=== PATIENT | female | born 1975 | race Caucasian/White ===

== ENCOUNTER 2016-06-24 08:18 | Inpatient (IN) | payer BC ==
[2016-06-24] MEDS ORDERED: Narcan 0.4 MG/ML IV ONE (08:36)
[2016-06-24] MEDS ORDERED: Sodium Chloride 0.9% 1000 ML 1,000 ML IV STA ×2 (08:36→10:08)
--- NOTE | 2016-06-24 08:36 | ERPHSYRPT ---
- History of Present Illness Time Seen by Provider: 06/24/16 08:38 Physician History: The patient is a 41-year-old female brought in by ambulance from her home where the believes she overdosed on medicines sometime last night. It is unclear what she may have overdosed on but she has empty pill bottles. She takes omeprazole, hydrocodone 7.5, Flexeril 10 mg, and clonazepam 0.5 mg. The patient is somnolent but will awake and angry fit to painful stimuli. The EMS crew states that EMS was called to the house yesterday for the patient wanting to cut herself. When asked if she wanted to kill herself, the patient shook her head yes. Otherwise the patient has been very difficult to interview. Timing/Duration: today Severity of Symptoms-Max: severe Severity of Symptoms-Current: severe Context related to: other (unknown) Suicidal thoughts: attempt, ingestion Associated Symptoms: ingestion Previous symptoms: other (unknown) Allergies/Adverse Reactions: No Known Drug Allergies Allergy (Verified 06/24/16 08:30) Home Medications: Clonazepam 0.5 mg [Klonopin 0.5 MG] 0.5 mg PO DAILY 03/16/16 [History] Cyclobenzaprine HCl 10 mg [Flexeril 10 MG] 20 mg PO DAILY 03/16/16 [ History] Fluoxetine HCl [Prozac] 20 mg PO DAILY 03/16/16 [History] Fluticasone Propionate [Flonase Nasal] 50 mcg IH DAILY 03/16/16 [History] Hydrocodone Bit/Acetaminophen [[place] 7.5-325 Tablet] 1 each PO BID 03/16/16 [ History] Omeprazole 20 MG [Prilosec 20 mg] 20 mg PO DAILY 03/16/16 [History] Hx Tetanus, Diphtheria Vaccination/Date Given: Yes (unknown) Hx Influenza Vaccination/Date Given: (unknown) Hx Pneumococcal Vaccination/Date Given: (unknown) - Past Medical History Pertinent Past Medical History: (unknown) Neurological History: No Pertinent History ENT History: No Pertinent History Cardiac History: No Pertinent History Respiratory History: No Pertinent History Endocrine Medical History: No Pertinent History Musculoskeletal History: Fractures GI Medical History: No Pertinent History History: No Pertinent History Psycho-Social History: Anxiety, Depression Female Reproductive Disorders: No Pertinent History Other Medical History: pt not answering questions at this time. no family with pt - Past Surgical History Past Surgical History: (unknown) Neuro Surgical History: No Pertinent History Cardiac: No Pertinent History Respiratory: No Pertinent History Gastrointestinal: No Pertinent History Genitourinary: No Pertinent History Musculoskeletal: No Pertinent History Female Surgical History: Tubal Ligation Other Surgical History: pt's 17 yr old daughter is here with her mother, but is not very knowlegabe abut her mothers medical history other than the facts that she drinks a lot and daughter considers her an alcoholic, and that pt abuses her Rx medications and steals adapex from from her and possible drugs from other people - Social History Smoking Status: Unknown if ever smoked How long have you smoked: unknown Exposure to second hand smoke: Yes Drug Use: methamphetamines, narcotics, other Patient Lives Alone: No - Review of Systems Constitutional: Other (decreased responsiveness) Eyes: No Symptoms Ears, Nose, & Throat: No Symptoms Respiratory: No Cough, No Dyspnea Cardiac: No Chest Pain, No Edema, No Syncope Abdominal/Gastrointestinal: No Abdominal Pain, No Nausea, No Vomiting, No Diarrhea Genitourinary Symptoms: No Symptoms Musculoskeletal: No Symptoms Skin: No Rash Neurological: Other (decreased responsiveness) Psychological: Other (unable to obtain) Endocrine: No Symptoms Hematologic/Lymphatic: No Symptoms Immunological/Allergic: No Symptoms All Other Systems: Reviewed and Negative - Nursing Vital Signs Nursing Vital Signs: Initial Vital Signs Temperature 98.1 F Temperature Source Oral Pulse Rate 96 Respiratory Rate 18 Blood Pressure [Right Arm] 120/77 Pain Intensity 0 - Physical Exam General Appearance: moderate distress Eyes, Ears, Nose, Throat Exam: dry mucous membranes Neck Exam: normal inspection, non-tender, supple Respiratory Exam: normal breath sounds, lungs clear, No respiratory distress Cardiovascular Exam: tachycardia Gastrointestinal/Abdominal Exam: soft, No tenderness, No distention Extremities Exam: normal inspection, normal range of motion, No evidence of injury, No edema Neurological Exam: withdraws to pain Behavior/Eye Contact/Speech: uncooperative, intoxicated appearance Skin Exam: normal color, warm, dry, No rash SpO2 Interpretation: normal - Course EKG Interpreted by Me: RATE, Sinus Rhythm, NORMAL AXIS, NORMAL INTERVALS, NORMAL ST-T Ordered Tests: Active Orders 24 hr Category Date Time Status Accucheck STAT Care 06/24/16 08:36 Active [place] Hardware Installer STAT Care 06/24/16 08:36 Active Cath for Specimen-Straight STAT Care 06/24/16 08:36 Active EKG-ER Only STAT Care 06/24/16 08:36 Active IV Insertion STAT Care 06/24/16 08:36 Active ACETAMINOPHEN Stat Lab 06/24/16 09:11 Completed CBC W DIFF Stat Lab 06/24/16 09:11 Completed CMP Stat Lab 06/24/16 09:11 Completed Ethyl Alcohol,Urine Stat Lab 06/24/16 09:11 Completed Lactic Acid Urgent Lab 06/24/16 08:36 Completed SALICYLATE Stat Lab 06/24/16 09:11 Completed UA W/ MICROSCOPIC Stat Lab 06/24/16 09:11 Completed Urine Triage Profile Stat Lab 06/24/16 09:11 Completed Medication Summary Generic Name Dose Route Start Last Admin Trade Name Freq PRN Reason Stop Dose Admin Sodium Chloride 1,000 mls @ 999 mls/hr 06/24/16 10:08 06/24/16 10:09 Sodium Chloride 0.9% 1000 Ml IV 06/24/16 11:08 999 mls/hr .Q1H1M STA Administration Discontinued Medications Generic Name Dose Route Start Last Admin Trade Name Freq PRN Reason Stop Dose Admin Sodium Chloride 1,000 mls @ 999 mls/hr 06/24/16 08:36 06/24/16 09:06 Sodium Chloride 0.9% 1000 Ml IV 06/24/16 09:36 999 mls/hr .Q1H1M STA Administration Sodium Chloride Confirm 06/24/16 08:44 Sodium Chloride 0.9% 1000 Ml Administered 06/24/16 08:45 Dose 1,000 mls @ ud .ROUTE .STK-MED ONE Sodium Chloride Confirm 06/24/16 09:54 Sodium Chloride 0.9% 1000 Ml Administered 06/24/16 09:55 Dose 1,000 mls @ ud .ROUTE .STK-MED ONE Naloxone HCl 0.4 mg 06/24/16 08:36 06/24/16 09:06 Narcan 0.4 Mg/Ml IV 06/24/16 08:37 0.4 mg STAT ONE Administration Naloxone HCl Confirm 06/24/16 08:44 Narcan 0.4 Mg/Ml Administered 06/24/16 08:45 Dose 0.4 mg .ROUTE .STK-MED ONE Lab/Rad Data: Laboratory Result Diagrams 06/24/16 09:11 06/24/16 09:11 Laboratory Results 06/24/16 06/24/16 06/24/16 Range/Units 09:11 09:11 09:11 WBC 11.0 H (4.0-10.5) K/mm3 RBC 4.47 (4.1-5.4) M/mm3 Hgb 13.3 (12.0-16.0) gm/dl Hct 40.8 (35-47) % MCV 91.3 (78-100) fl MCH 29.8 (26-32) pg MCHC 32.6 (32-36) g/dl RDW 12.8 (11.5-14.0) % Plt Count 258 (150-450) K/mm3 MPV 9.8 H (6-9.5) fl Gran % 72.6 H (36.0-66.0) % Lymphocytes % 14.6 L (24.0-44.0) % Monocytes % 12.3 H (0.0-12.0) % Eosinophils % 0.3 (0.00-5.0) % Basophils % 0.2 (0.0-0.4) % Basophils # 0.02 (0-0.4) Sodium 136 (136-145) mEq/L Potassium 3.5 (3.5-5.1) mEq/L Chloride 101 (98-107) mEq/L Carbon Dioxide 27.6 (21-32) mEq/L Anion Gap 11.1 (5-15) MEQ/L BUN 11 (9-20) mg/dL Creatinine 0.90 (0.55-1.30) mg/dl Estimated GFR > 60 ML/MIN Glucose 86 (70-110) MG/DL Lactic Acid (0.4-2.0) Calcium 8.8 (8.5-10.1) mg/dL Total Bilirubin 1.0 (0.2-1.0) mg/dL AST 36 (15-37) U/L ALT 42 (12-78) U/L Alkaline Phosphatase 74 (46-116) U/L Serum Total Protein 7.2 (6.4-8.2) gm/dL Albumin 3.9 (3.4-5.0) g/dL Ur Collection Type Urine Color (YELLOW) Urine Appearance (CLEAR) Urine pH 7.0 (5-6) Ur Specific [place] (1.005-1.025) Urine Protein (Negative) Urine Glucose (UA) (NEGATIVE) mg/dL Urine Ketones (NEGATIVE) Urine Nitrite (NEGATIVE) Urine Bilirubin (NEGATIVE) Urine Urobilinogen (0-1) mg/dL Urine WBC (Auto) (NEGATIVE) Urine RBC (Auto) (0-5) [place]/ul Urine Microscopic RBC (0-2) /HPF Ur Epithelial Cells (FEW) /HPF Salicylates < 2.8 L (2.8-20.0) mg/dl Urine Opiates Level (NEGATIVE) Ur Methadone (NEGATIVE) Acetaminophen < 2.0 L (10-30) ug/ml Urine Barbiturates (NEGATIVE) Ur Phencyclidine (PCP) (NEGATIVE) Urine Amphetamine (NEGATIVE) U Benzodiazepine Level (NEGATIVE) Urine Cocaine (NEGATIVE) Urine Marijuana (THC) (NEGATIVE) Urine Ethyl Alcohol 4 (0.00-20) mg/dl Specimen Received 06/24/16 06/24/16 06/24/16 Range/Units 09:11 09:11 08:36 WBC (4.0-10.5) K/mm3 RBC (4.1-5.4) M/mm3 Hgb (12.0-16.0) gm/dl Hct (35-47) % MCV (78-100) fl MCH (26-32) pg MCHC (32-36) g/dl RDW (11.5-14.0) % Plt Count (150-450) K/mm3 MPV (6-9.5) fl Gran % (36.0-66.0) % Lymphocytes % (24.0-44.0) % Monocytes % (0.0-12.0) % Eosinophils % (0.00-5.0) % Basophils % (0.0-0.4) % Basophils # (0-0.4) Sodium (136-145) mEq/L Potassium (3.5-5.1) mEq/L Chloride (98-107) mEq/L Carbon Dioxide (21-32) mEq/L Anion Gap (5-15) MEQ/L BUN (9-20) mg/dL Creatinine (0.55-1.30) mg/dl Estimated GFR ML/MIN Glucose (70-110) MG/DL Lactic Acid 0.9 (0.4-2.0) Calcium (8.5-10.1) mg/dL Total Bilirubin (0.2-1.0) mg/dL AST (15-37) U/L ALT (12-78) U/L Alkaline Phosphatase (46-116) U/L Serum Total Protein (6.4-8.2) gm/dL Albumin (3.4-5.0) g/dL Ur Collection Type CATH Urine Color YELLOW (YELLOW) Urine Appearance CLEAR (CLEAR) Urine pH 7.0 (5-6) Ur Specific [place] 1.020 (1.005-1.025) Urine Protein 30 (Negative) Urine Glucose (UA) NEGATIVE (NEGATIVE) mg/dL Urine Ketones LARGE-80 (NEGATIVE) Urine Nitrite NEGATIVE (NEGATIVE) Urine Bilirubin SMALL (NEGATIVE) Urine Urobilinogen 0.2 (0-1) mg/dL Urine WBC (Auto) NEGATIVE (NEGATIVE) Urine RBC (Auto) NEGATIVE (0-5) [place]/ul Urine Microscopic RBC 0-2 (0-2) /HPF Ur Epithelial Cells RARE (FEW) /HPF Salicylates (2.8-20.0) mg/dl Urine Opiates Level NEG. (NEGATIVE) Ur Methadone NEG. (NEGATIVE) Acetaminophen (10-30) ug/ml Urine Barbiturates NEG. (NEGATIVE) Ur Phencyclidine (PCP) NEG. (NEGATIVE) Urine Amphetamine POS. (NEGATIVE) U Benzodiazepine Level POS. (NEGATIVE) Urine Cocaine NEG. (NEGATIVE) Urine Marijuana (THC) NEG. (NEGATIVE) Urine Ethyl Alcohol (0.00-20) mg/dl Specimen Received 06/24/16 0940 - Progress Progress: unchanged Progress Note: 06/24/16 09:21 After narcan 0.4 mg IV, pt is unchanged. 06/24/16 10:54 Pt resting comfortably and O2 sat of 98% on RA. Discussed with DrLina: Alexx Will see patient in: hospital (observation) Counseled pt/family regarding: lab results, diagnosis - Departure Time of Disposition: 10:55 Departure Disposition: In-patient Admission (per Dr Anurag Lopez) Clinical Impression: Overdose Condition: Stable Critical Care Time: No
[2016-06-24] MEDS ORDERED: Narcan 0.4 MG/ML ONE (08:44)
[2016-06-24] MEDS ORDERED: Sodium Chloride 0.9% 1000 ML 1,000 ML ONE ×2 (08:44→09:54)
[2016-06-24 09:29] LABS: BASOPHIL % 0.2 % (0.0-0.4); Eosinophil % 0.3 % (0.00-5.0); Granulocytes % 72.6 % (36.0-66.0); Lymphocytes % 14.6 % (24.0-44.0); Mean Cell Volume 91.3 fl (78-100); Mean Corpuscular Hemoglobin 29.8 pg (26-32); Mean Platelet Volume 9.8 fl (6-9.5); Monocytes % 12.3 % (0.0-12.0); Platelet Count 258 K/mm3 (150-450); Red Blood Count 4.47 M/mm3 (4.1-5.4); Red Cell Distribution Width 12.8 % (11.5-14.0)
[2016-06-24 09:52] LABS: ALBUMIN 3.9 g/dL (3.4-5.0); ALKALINE PHOSPHATASE 74 U/L (46-116); ANION GAP 11.1 MEQ/L (5-15); BLOOD UREA NITROGEN 11 mg/dL (9-20); CHLORIDE 101 mEq/L (98-107); Carbon Dioxide 27.6 mEq/L (21-32); Glucose 86 MG/DL (70-110); Potassium 3.5 mEq/L (3.5-5.1); SGOT/AST 36 U/L (15-37); SGPT/ALT 42 U/L (12-78); SODIUM 136 mEq/L (136-145); Total Protein 7.2 gm/dL (6.4-8.2)
[2016-06-24 09:56] LABS: ACETAMINOPHEN < 2.0 ug/ml (10-30)
[2016-06-24 09:59] LABS: COMPLETE URINE MICROSCOPIC? YES; Collection Type CATH
[2016-06-24 10:00] LABS: Epithelial Cells RARE /HPF (FEW)
[2016-06-24] MEDS ORDERED: Ativan 2 MG/1 ML VIAL IV PRN (13:30)
[2016-06-24] MEDS ORDERED: Geodon 20 MG INJ IM PRN (13:30)
[2016-06-24] MEDS: Sodium Chloride 0.9% 1000 ML 1,000 ML IV SCH ×2 (13:43→23:32)
--- NOTE | 2016-06-24 13:44 | PCM.HP ---
History of Present Illness - Chief Complaint Chief Complaint: overdose Date: 06/24/16 History of Present Illness: is a 41 year old female. history is obtained from medical record as no family is available in ICU currently and patient unable to communicate. who presented from home by EMS to ED with report that she likely overdosed on her medications she has pill bottle for prilosec and flexaril (filled 06/03/16) Dr. Mckeon. She also reportedly takes clonazepam and hydrocodone also by inspect last fill was 05/22/16 for clonazepam 0.5 #20 and the hydrocodone 7.5/ 325 #60 04/04/2016. Per review of records it appears she has multiple attempts in the past with self harm and with drug abuse. per ED physician she briefly said yes when he asked if she was trying to commit suicide. - Review of Systems Constitutional: Other (unable to obtain) Medications & Allergies Home Medications: Home Medication List Clonazepam 0.5 mg [Klonopin 0.5 MG] 0.5 mg PO DAILY 03/16/16 [History Confirmed 06/24/16] Cyclobenzaprine HCl 10 mg [Flexeril 10 MG] 20 mg PO DAILY 03/16/16 [ History Confirmed 06/24/16] Fluoxetine HCl [Prozac] 20 mg PO DAILY 03/16/16 [History Confirmed 06/24/16] Fluticasone Propionate [Flonase Nasal] 50 mcg IH DAILY 03/16/16 [History Confirmed 06/24/16] Hydrocodone Bit/Acetaminophen [[place] 7.5-325 Tablet] 1 each PO BID 03/16/16 [ History Confirmed 06/24/16] Omeprazole 20 MG [Prilosec 20 mg] 20 mg PO DAILY 03/16/16 [History Confirmed 04/11] Allergies/Adverse Reactions: Allergies Allergy/AdvReac Type Severity Reaction Status Date / Time No Known Drug Allergies Allergy Verified 06/24/16 08:30 - Past Medical History Past Medical History: (unknown) Neurological History: No Pertinent History ENT History: No Pertinent History Cardiac History: No Pertinent History Respiratory History: No Pertinent History Endocrine Medical History: No Pertinent History Musculoskelatal History: Fractures GI Medical History: No Pertinent History History: No Pertinent History Pyscho-Social History: Anxiety, Depression Reproductive Disorders: No Pertinent History Comment: pt not answering questions at this time. no family with pt - Female History Are you now?: No - Past Surgical History Past Surgical History: (unknown) Neuro Surgical History: No Pertinent History Cardiac History: No Pertinent History Respiratory Surgery: No Pertinent History GI Surgical History: No Pertinent History Genitourinary Surgical Hx: No Pertinent History Musculskeletal Surgical Hx: No Pertinent History Female Surgical History: Tubal Ligation Other Surgical History: pt's 17 yr old daughter is here with her mother, but is not very knowlegabe abut her mothers medical history other than the facts that she drinks a lot and daughter considers her an alcoholic, and that pt abuses her Rx medications and steals adapex from from her and possible drugs from other people - Social History Smoking Status: Unknown if ever smoked How long have you smoked: unknown Exposure to second hand smoke: Yes Alcohol: Daily Drug Use: methamphetamines, narcotics, other - Physical Exam Vital Signs: Vital Signs - 24 hr Temp Pulse Resp BP Pulse Ox 06/24/16 10:09 96 H 18 120/77 100 06/24/16 09:08 96 H 22 133/62 100 06/24/16 08:29 98.1 F 103 H 22 117/79 92 L General Appearance: no apparent distress Neurologic Exam: other (awakens to voice attempts to open eyes moves all extremities but does not follow commands) Eye Exam: PERRL/EOMI, No scleral icterus, No pale conjunctivae Ears, Nose, Throat Exam: dry mucous membranes Neck Exam: normal inspection, non-tender, supple Respiratory Exam: normal breath sounds, lungs clear Cardiovascular Exam: regular rate/rhythm, normal heart sounds, No edema Gastrointestinal/Abdomen Exam: soft, normal bowel sounds, No tenderness, No distention, No mass, No guarding Back Exam: normal inspection Extremity Exam: normal inspection, No pedal edema Skin Exam: warm, dry, other (multiple small puncture sites mainly in left arm unclear but appears to be too many to be due to recent IV attempts/blood draws.) Assessment/Plan (1) Polysubstance overdose Current Visit: Yes Status: Acute Assessment & Plan: She opens her eyes but does not respond appropriately moves all her extremities. QT ok on EKG normal EKG labs unremarkable except + benzo and amphetamines given her inability to answer questions/ follow commands and no family will get CT head no obvious evidence of trauma. Will also check HCG and repeat the acetaminophen level now 4 hours post initial draw to rule out apap toxicity likely polysubstance benzodiazepine and cyclobenzaprine will observe in icu with iv maint fluids ativan prn aggitation [facility] consult when alert. Code(s): T50.901A - POISONING BY UNSP DRUG/MEDS/BIOL SUBST, ACCIDENTAL, INIT
--- NOTE | 2016-06-24 20:56 | XRAY ---
Indication: Medication overdose. Multiple contiguous axial images obtained through the head without contrast. Comparison: March 22, 2016. Again normal appearing brain parenchyma, ventricles, and bony calvarium. Visualized paranasal sinuses and mastoid air cells are pneumatized and clear. Impression: Stable normal CT head without contrast exam. CTDI 70.21
[2016-06-24] MEDS: Pepcid 20 MG VIAL IV SCH (23:30)
[2016-06-25 06:08] LABS: ANION GAP 9.3 MEQ/L (5-15); BLOOD UREA NITROGEN 10 mg/dL (9-20); CHLORIDE 109 mEq/L (98-107); Carbon Dioxide 26.9 mEq/L (21-32); Glucose 77 MG/DL (70-110); Potassium 3.9 mEq/L (3.5-5.1); SODIUM 141 mEq/L (136-145)
[2016-06-25 06:19] LABS: ACETAMINOPHEN < 2.0 ug/ml (10-30)
[2016-06-25] MEDS: Pepcid 20 MG VIAL IV SCH (10:07)
--- NOTE | 2016-06-25 12:07 | PCM.NOTE ---
Date and Time: 06/25/16 1201 Subjective Assessment: She has woken up but is very drowsy still. She did eat some this am and denies nausea or pain. She briefly opens eyes to answer questions but avoids certain questions. She doesn't really answer the question if she was trying to kill herself by taking medications. She did deny using injections but also denies knowing what it is she took or if she smoked anything or ingested it overall doesn't really answer questions and history very difficult from this. Nursing did talk with her when he was here and noted she had been feeling suicidal for the previous 2 days and was concerned she may have ingested bath salts previously and was very paranoid and delusional. Objective Exam General Appearance: no apparent distress Neurologic Exam: other (moving all extremities responds to voice appears to selectively avoid questioning and keeps eyes closed during most questioning.), No alert, No cooperative, No facial droop, No slurred speech Eye Exam: PERRL, EOMI, No scleral icterus, No pale conjunctivae Ears, Nose, Throat Exam: moist mucous membranes Neck Exam: non-tender, supple Respiratory Exam: lungs clear, No respiratory distress Cardiovascular Exam: regular rate/rhythm, normal heart sounds, No edema Extremity Exam: normal inspection, No calf tenderness, No pedal edema OBJECTIVE DATA Vital Signs: Vital Signs - 24 hr Temp Pulse Resp BP Pulse Ox 06/25/16 11:35 98.3 F 90 15 99/72 96 06/25/16 11:32 90 06/25/16 10:10 93 H 102/69 06/25/16 08:00 97.3 F 88 15 86/71 95 06/25/16 04:00 97.5 F 91 H 17 101/66 99 06/25/16 00:01 83 06/25/16 00:00 97.6 F 82 13 92/66 99 06/24/16 20:00 97.6 F 82 18 99/82 99 06/24/16 16:00 97.9 F 88 18 122/93 100 06/24/16 13:16 98.0 F 99 H 18 122/90 100 Pain Assessment - Last Documented Pain Intensity 0 Pain Scale Used [facility] Intake and Output: Intake & Output 06/23/16 06/24/16 06/25/16 06/26/16 11:59 11:59 11:59 11:59 Intake Total 1777 Balance 1777 Weight 50.793 kg Lab Results: Accuchecks Date 06/25/16 Date 06/25/16 Date 06/25/16 Date 06/24/16 Date 06/24/16 Time 11:31 Time 05:30 Time 02:00 Time 16:45 Accucheck Value: 134 Accucheck Value: 64 Accucheck Value: 81 Accucheck Value: 64 Lab Results-Last 24 Hours 06/24/16 06/25/16 Range/Units 13:39 05:28 Sodium 141 (136-145) mEq/L Potassium 3.9 (3.5-5.1) mEq/L Chloride 109 H (98-107) mEq/L Carbon Dioxide 26.9 (21-32) mEq/L Anion Gap 9.3 (5-15) MEQ/L BUN 10 (9-20) mg/dL Creatinine 0.86 (0.55-1.30) mg/dl Estimated GFR > 60 ML/MIN Glucose 77 (70-110) MG/DL Calcium 7.9 L (8.5-10.1) mg/dL Acetaminophen < 2.0 L (10-30) ug/ml RPR Nonreactive (Nonreactive) Radiology Exams: Radiology Procedures Category Date Time Status HEAD WITHOUT CONTRAST [CT] Routine Exams 06/24/16 13:41 Completed Assessment/Plan (1) Polysubstance overdose Current Visit: Yes Status: Acute Assessment & Plan: still drowsy and uncooperative with questioning. from peripheral history from ems report and her strong concern of suicidal attempt she has not confirmed this however will continue supportive care for now and monitor in icu on telemetry labs and Qt remain ok. Likely would benefit from inpatient psych evaluation and treatment given her recent history thus far has been too drowsy for evaluation and has not signed consent for [facility] eval Code(s): T50.901A - POISONING BY UNSP DRUG/MEDS/BIOL SUBST, ACCIDENTAL, INIT
[2016-06-25 16:37] VITALS: O2SAT 95
--- NOTE | 2016-06-25 18:04 | PCM.DS ---
Discharge Summary Date of Admission: 06/24/16 12:22 Date of Discharge: 06/25/2016 Admitting Physician: LIBBY CAN Primary Care Provider: GLENROY CURTIS Allergies Allergies No Known Drug Allergies Allergy (Verified 06/24/16 08:30) Hospital Summary - Hospital Course Hospital Course: She was admitted of an apparent polysubstance overdose she states she doesn't remember what she took or how. Her was concerned for bath salt use over the past several days, suicidal ideation and behavior and an attempt at cutting her wrists the prior day as well as maybe taking flexaril prior to arrival. She was lethargic but opened eyes to voice. She had negative lab work uds + for benzo and amphetamines. She was given iv fluids and monitored on telemetry and awoke without any known deficits. She was still very depressed. She states she is not sure what happened. She avoided most questions about her actions. She did agree to [facility] consult and after evaluation she was felt to be a danger to herself for fear of she will harm herself if released to her own care and thus arrangements were made for transfer to inpatient psychiatric unit at [facility]. Emergency [facility] paperwork was signed at request of receiving facility although the patient is willing to voluntarily go to the facility. She did not require any prn medications during her hospitalization she only received pepcid for GI prophylaxis and normal saline infusion. She has pending results for hiv, hep c, hepatitis b screening testing that were drawn on admission over concern for multiple injection salcedo on her left arm however she denies any IV drug use. - Vitals & Intake/Output Vital Signs: Vital Signs Temperature 98.0 F 06/25/16 16:00 Pulse Rate 107 H 06/25/16 16:00 Respiratory Rate 16 06/25/16 16:00 Blood Pressure 91/58 06/25/16 16:00 O2 Sat by Pulse Oximetry 95 06/25/16 16:00 Intake & Output: Intake & Output 06/23/16 06/24/16 06/25/16 06/26/16 11:59 11:59 11:59 11:59 Intake Total 1777 Balance 1777 Weight 50.793 kg - Lab Result Diagrams: 06/24/16 09:11 06/25/16 05:28 Lab Results-Last 24 Hrs: Accuchecks Date 06/25/16 Date 06/25/16 Date 06/25/16 Date 06/25/16 Date 06/25/16 Date 06/24/16 Time 16:00 Time 11:30 Time 11:31 Time 05:30 Time 02:00 Accucheck Value: 99 Accucheck Value: 138 Accucheck Value: 134 Accucheck Value: 64 Accucheck Value: 81 Lab Results-Last 24 Hours 06/24/16 06/25/16 Range/Units 13:39 05:28 Sodium 141 (136-145) mEq/L Potassium 3.9 (3.5-5.1) mEq/L Chloride 109 H (98-107) mEq/L Carbon Dioxide 26.9 (21-32) mEq/L Anion Gap 9.3 (5-15) MEQ/L BUN 10 (9-20) mg/dL Creatinine 0.86 (0.55-1.30) mg/dl Estimated GFR > 60 ML/MIN Glucose 77 (70-110) MG/DL Calcium 7.9 L (8.5-10.1) mg/dL Acetaminophen < 2.0 L (10-30) ug/ml RPR Nonreactive (Nonreactive) Micro Results-Entire Visit: Accuchecks Date 06/25/16 Date 06/25/16 Date 06/25/16 Date 06/25/16 Date 06/25/16 Date 06/24/16 Time 16:00 Time 11:30 Time 11:31 Time 05:30 Time 02:00 Accucheck Value: 99 Accucheck Value: 138 Accucheck Value: 134 Accucheck Value: 64 Accucheck Value: 81 - Radiology Exams Ordered Rad Exams-Entire Visit: Radiology Procedures Category Date Time Status HEAD WITHOUT CONTRAST [CT] Routine Exams 06/24/16 13:41 Completed Discharge Exam General Appearance: no apparent distress Neurologic Exam: alert, oriented x 3, cooperative Skin Exam: warm, dry Eye Exam: PERRL, No scleral icterus, No pale conjunctivae Ears, Nose, Throat Exam: moist mucous membranes Neck Exam: normal inspection, non-tender, supple Respiratory Exam: normal breath sounds, lungs clear Cardiovascular Exam: regular rate/rhythm, normal heart sounds, No murmur Gastrointestinal/Abdomen Exam: soft, normal bowel sounds, No tenderness, No distention Extremity Exam: normal inspection, No calf tenderness, No pedal edema Back Exam: normal inspection, normal range of motion, No CVA tenderness Final Diagnosis/Problem List - Final Discharge Diagnosis/Problem (1) Polysubstance overdose Current Visit: Yes Status: Acute (2) Suicidal ideation Current Visit: Yes Status: Acute - Discharge Discharge Date: 06/25/16 Disposition: XFER OTHER Condition: Stable Prescriptions: Discontinued Hydrocodone Bit/Acetaminophen [[place] 7.5-325 Tablet] 1 each PO BID Cyclobenzaprine HCl 10 mg [Flexeril 10 MG] 20 mg PO DAILY Clonazepam 0.5 mg [Klonopin 0.5 MG] 0.5 mg PO DAILY Fluoxetine HCl [Prozac] 20 mg PO DAILY Omeprazole 20 MG [Prilosec 20 mg] 20 mg PO DAILY Fluticasone Propionate [Flonase Nasal] 50 mcg IH DAILY Follow up with: GLENROY CURTIS [Primary Care Provider] -
[2016-06-25 18:16] VITALS: BP 106/71; PULSE 104
[2016-06-27 05:12] LABS: Hepatits C Antibody by EIA Non Reactive (Non Reactive)
[2016-06-27 06:16] LABS: Hepatits B Sur Ag Screen Non Reactive (Non Reactive)
== END 2016-06-25 19:40 | DRG 918 ==
LOC: ED 08:18 → ICU 12:22 → OBSVTOIN 12:22 → UNDOADMOB 12:22 → UNDODISOB 06-25 19:40
PROVIDERS: ADMIT Family Medicine; ATTEND Family Medicine
DX: T50.901A Poisoning by unspecified drugs, medicaments and biological substances, accidental (unintentional), initial encounter (principal); R45.851 Suicidal ideations; F41.8 Other specified anxiety disorders
CPT/HCPCS: 36000; 36415; 70450; 80048; 80053; 80307; 80320; 81000; 82962; 83605; 83986; 84703; 85025; 86317; 86592; 86701; 86702; 86803; 87340; 87389; 87491; 87591; 90791; 93005; 93041; 96360; 96361; 96374; 99285; G0378; G0481; J2310; J3486; P9612; Q3014

== ENCOUNTER 2016-07-25 19:25 | Emergency (ER) | payer BC ==
[2016-07-25] MEDS ORDERED: Sodium Chloride 0.9% 1000 ML 1,000 ML IV STA ×2 (19:40→21:56)
[2016-07-25] MEDS ORDERED: THIAMINE 200 MG/2 ML IV ONE (19:41)
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
[2016-07-25 20:05] LABS: BASOPHIL % 0.2 % (0.0-0.4); Eosinophil % 0.7 % (0.00-5.0); Lymphocytes % 16.3 % (24.0-44.0); Mean Cell Volume 89.3 fl (78-100); Mean Corpuscular Hemoglobin 30.2 pg (26-32); Mean Platelet Volume 9.5 fl (6-9.5); Monocytes % 6.8 % (0.0-12.0); Platelet Count 226 K/mm3 (150-450); Red Cell Distribution Width 12.6 % (11.5-14.0); White Blood Count 9.9 K/mm3 (4.0-10.5)
[2016-07-25] MEDS ORDERED: THIAMINE 200 MG/2 ML ONE (20:07)
[2016-07-25] MEDS ORDERED: Sodium Chloride 0.9% 1000 ML 1,000 ML ONE ×2 (20:07→21:58)
[2016-07-25 20:26] LABS: Bacteria FEW /HPF (NEGATIVE); COMPLETE URINE MICROSCOPIC? YES; Collection Type CATH; Epithelial Cells FEW /HPF (FEW); Ph 6.5 (5-6)
[2016-07-25 20:37] LABS: ALBUMIN 3.6 g/dL (3.4-5.0); ALKALINE PHOSPHATASE 70 U/L (46-116); ANION GAP 12.9 MEQ/L (5-15); BILIRUBIN,TOTAL 0.4 mg/dL (0.2-1.0); BLOOD UREA NITROGEN 15 mg/dL (9-20); CHLORIDE 104 mEq/L (98-107); Glucose 123 MG/DL (70-110); Potassium 3.3 mEq/L (3.5-5.1); SGOT/AST 24 U/L (15-37); SGPT/ALT 24 U/L (12-78); SODIUM 141 mEq/L (136-145); Total Protein 6.9 gm/dL (6.4-8.2)
[2016-07-25 20:38] LABS: ACETAMINOPHEN 37.2 ug/ml (10-30)
[2016-07-25] MEDS ORDERED: ACETADOTE IV ONE (21:17)
[2016-07-25] MEDS ORDERED: WATER IV ONE (21:17)
[2016-07-25] MEDS ORDERED: DEXTROSE IV ONE (21:17)
[2016-07-25] MEDS ORDERED: Acetadote IV 200 MG/ML IV ONE ×2 (21:18→21:27)
[2016-07-25] MEDS ORDERED: Dextrose 5%/Water IV Soln. 250 ML 250 ML IV ONE (21:18)
[2016-07-25] MEDS ORDERED: Dextrose 5%/Water IV Soln. 500 ML 500 ML IV ONE (21:28)
[2016-07-25] MEDS ORDERED: Ativan 2 MG/1 ML VIAL ONE (21:34)
[2016-07-25] MEDS ORDERED: Ativan 2 MG/1 ML VIAL IV ONE (21:40)
[2016-07-25] MEDS: ACETADOTE IV ONE ×2 (21:41→22:32)
[2016-07-25] MEDS: DEXTROSE IV ONE ×2 (21:41→22:32)
[2016-07-25] MEDS: WATER IV ONE ×2 (21:41→22:32)
[2016-07-25 21:47] VITALS: O2SAT 99
[2016-07-25 22:05] VITALS: BP 103/69; PULSE 89
== END 2016-07-25 22:46 ==
LOC: ED 19:25
DX: T50.992A Poisoning by other drugs, medicaments and biological substances, intentional self-harm, initial encounter (principal); F41.9 Anxiety disorder, unspecified; F32.9 Major depressive disorder, single episode, unspecified; F10.20 Alcohol dependence, uncomplicated; F19.10 Other psychoactive substance abuse, uncomplicated
CPT/HCPCS: 36415; 51702; 80053; 80307; 80320; 81000; 82550; 82947; 82962; 83986; 84703; 85025; 93005; 93041; 96360; 96365; 96374; 96375; 99285; G0481; J0132; J2060